=== PATIENT | male | born 1930 | race Caucasian/White ===

== ENCOUNTER 2017-09-24 04:33 | Observation (INO) | payer MEDICARE ==
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
[2017-09-24 04:59] LABS: Prothrombin Time (Patient) 10.2 Seconds (9.0-11.0)
[2017-09-24 05:01] LABS: Albumin * 3.9 gm/dl (3.4-5.0); Anion Gap 12.5 mmol/L (6.8-13.8); BUN/Creatinine Ratio 19.7 (9.0-21.6); Ca. Corrected For Albumin 9.1 mg/dL (8.4-10.2); Calcium * 9.3 mg/dL (7.9-10.9); Carbon Dioxide 29.3 mmol/L (24-32.6); INR 1.02 INR (0.90-1.10); Partial Thrombolplastin Time 23.2 Seconds (24-32); Potassium 3.8 mmol/L (3.4-4.6); Total Protein 7.9 gm/dL (6.2-8.2)
[2017-09-24 05:49] LABS: Hematocrit 40.4 % (42.0-52.0); Hemoglobin 13.8 gm/dL (13.5-18.0); Mean Cell Volume 93.1 fl (78-100); Mean Corpuscular Hemoglobin 31.8 pg (27-31); Mean Corpuscular Hgb Conc 34.2 g/dl (32-36); Neutrophil # 9.8 K/mm3 (1.3-6.0); Neutrophil % 87.9 % (42-75.0); Platelet Count 171 K/mm3 (150-450); Red Blood Count 4.34 M/mm3 (4.7-6.0); Red Cell Distribution Width 13.2 % (11.5-14.0); White Blood Count 11.1 K/mm3 (4.0-10.5)
[2017-09-24 05:52] LABS: Urine Bilirubin Negative (NEGATIVE); Urine Blood 25 /ul (NEGATIVE); Urine Ketone 5 mg/dL (NEGATIVE); Urine Nitrite Negative (NEGATIVE); Urine Protein Negative (NEGATIVE); Urine Specific Gravity 1.015 SP.GR. (1.005-1.030); Urine Urobilinogen Normal (NORMAL)
[2017-09-24] MEDS ORDERED: ONDANSETRON HCL/PF 2 MG/ML VIAL IV ONE (05:53)
[2017-09-24] MEDS ORDERED: MORPHINE SULFATE 2 MG/ML DISP.SYRIN IV ONE ×2 (05:53→06:28)
[2017-09-24] MEDS ORDERED: MORPHINE SULFATE 2 MG/ML DISP.SYRIN ONE ×2 (05:54→06:45)
[2017-09-24] MEDS ORDERED: ONDANSETRON HCL/PF 2 MG/ML VIAL ONE (05:54)
[2017-09-24 06:01] LABS: Urine Color Yellow
[2017-09-24 06:02] LABS: Urine Appearance Cloudy; Urine Bacteria 4+; Urine RBC 0-5 /hpf (0-5)
[2017-09-24] MEDS ORDERED: LISINOPRIL 20 MG TABLET PO SCH (07:15)
[2017-09-24] MEDS ORDERED: LISINOPRIL 10 MG TABLET ONE (07:18)
--- NOTE | 2017-09-24 08:53 | HP ---
Chief Complaint - Chief Complaint Date of Service: 09/24/17 Time of Service: 08:45 Chief Complaint: syncope History of Present Illness: 87-year-old white male in the middle of the night get out of bed walk to the bathroom got dizzy and fell down. He thinks he passed out He remember he had pain on the left side of the ribs and a crawl back to his bed and called 911. He said he walked to the ambulance and was seen in the emergency room head CT showed old stroke and x-ray showed fractured left ribs. At the emergency room his blood pressure was 220/110 which gradually settle down when he was admitted to the floor - Patient's Past Medical History Patient History - Medical: No pertinent hx, Renal Failure Patient History - Cardiac/Respiratory: Hypertension Patient History - Cancer: No Hx of Cancer Patient History - Surgical Procedures: No surgical history Patient History - Other: None - Family History Family History:: no family history of premature - Family History Mother Family History - Medical: , No pertinent hx Family History - Cardiac/Respiratory: No pertinent hx Family History - Cancer: No pertinent family hx - Social History Living Situations: alone Abuse History: No History of abuse Psych History: No pertinent hx Smoking Status: Never smoker Have you smoked in the past 12 months: No Drug Use: none Review Of Systems (GEN) - Review of Systems EENTM: Present: No Symptoms Reported Respiratory: Present: No Symptoms Reported Cardiac: Present: No Symptoms Reported Abdominal: Present: No Symptoms Reported Genitourinary: Present: Frequency, Nocturia, Polyuria Musculoskeletal: Present: No Symptoms Reported Neurological: Present: No Symptoms Reported Allergies/Adverse Reactions: Allergies Allergy/AdvReac Type Severity Reaction Status Date / Time No Known Allergies Allergy Verified 09/24/17 05:36 Home Medications: HOME MEDICATIONS Fexofenadine/Pseudoephedrine [Lorena-D 12 Hour Tablet] 1 each PO DAILY [Last Taken Unknown] Furosemide [Lasix] 40 mg PO DAILY 09/24/17 [Last Taken Unknown] Lisinopril 20 mg PO DAILY 09/24/17 [Last Taken Unknown] Tamsulosin HCl [Flomax] 2 tab PO DAILY 09/24/17 [Last Taken Unknown] Exam - Exam Vital Signs: Vital Signs - Last Taken Temp 36.9 C 09/24/17 08:08 Pulse 84 09/24/17 08:08 Resp 20 09/24/17 08:08 BP 145/70 09/24/17 08:08 Pulse Ox 97 09/24/17 08:08 Constitutional: Present: Alert, Oriented x3, Cooperative ENT Exam: Present: normal ENT inspection, hearing grossly normal Neck: Present: full range of motion Back Exam: Present: normal inspection Respiratory: Present: lungs clear Cardiovascular/Chest: Present: regular rate, rhythm, no JVD, edema Abdomen: Present: Normal bowel sounds, soft, nontender, nondistended Extremity: Present: normal range of motion, normal inspection, lower extremity edema Skin Exam: Present: normal color, warm/dry Neurologic: Present: air conditioning mechanic industrial II-XII nml as tested, normal cerebellar test Appearance: Present: appropriate appearance Diagnostic Studies: Laboratory Results WBC 11.1 K/mm3 (4.0-10.5) H 09/24/17 05:45 RBC 4.34 M/mm3 (4.7-6.0) L 09/24/17 05:45 Hgb 13.8 gm/dL (13.5-18.0) 09/24/17 05:45 Hct 40.4 % (42.0-52.0) L 09/24/17 05:45 MCV 93.1 fl (78-100) 09/24/17 05:45 MCH 31.8 pg (27-31) H 09/24/17 05:45 MCHC 34.2 g/dl (32-36) 09/24/17 05:45 RDW 13.2 % (11.5-14.0) 09/24/17 05:45 Plt Count 171 K/mm3 (150-450) 09/24/17 05:45 MPV 10.0 fl (6.0-9.5) H 09/24/17 05:45 Immature Gran % (Auto) 0.50 % (0.001-0.429) H 09/24/17 05:45 Immature Gran # (Auto) 0.05 K/mm3 (0.000-0.0310) H 09/24/17 05:45 Neutrophils % 87.9 % (42-75.0) H 09/24/17 05:45 Lymphocytes % 6.6 % (20-51) L 09/24/17 05:45 Monocytes % 4.5 % (0.0-9) 09/24/17 05:45 Eosinophils % 0.2 % (0.0-3.0) 09/24/17 05:45 Basophils % 0.3 % (0.0-1.0) 09/24/17 05:45 Nucleated RBC % 0.0 k/mm3 (0-1) 09/24/17 05:45 Neutrophils # 9.8 K/mm3 (1.3-6.0) H 09/24/17 05:45 Lymphocytes # 0.7 k/mm3 (1.5-3.5) L 09/24/17 05:45 Monocytes # 0.5 k/mm3 (0.0-1.0) 09/24/17 05:45 Eosinophils # 0.0 k/mm3 (0.0-0.7) 09/24/17 05:45 Absolute Basophils 0.0 k/mm3 (0.0-0.1) 09/24/17 05:45 ESR 13 mm/hr (0-10) H 09/24/17 05:45 PT 10.2 Seconds (9.0-11.0) 09/24/17 04:38 INR (Anticoag Therapy) 1.02 INR (0.90-1.10) 09/24/17 04:38 PTT ([place]) 23.2 Seconds (24-32) L 09/24/17 04:38 Sodium 144 mmol/L (132-142) H 09/24/17 04:38 Plasma Sodium 145 mmol/L (130-142) H 09/24/17 04:38 Potassium 3.8 mmol/L (3.4-4.6) 09/24/17 04:38 Chloride 106 mmol/L (97-106) 09/24/17 04:38 Carbon Dioxide 29.3 mmol/L (24-32.6) 09/24/17 04:38 Anion Gap 12.5 mmol/L (6.8-13.8) 09/24/17 04:38 BUN 35 mg/dL (6-23) H 09/24/17 04:38 Creatinine 1.78 mg/dL (0.4-1.4) H 09/24/17 04:38 Est GFR (Non-Af Amer) 39 mL/min (60-130) L 09/24/17 04:38 BUN/Creatinine Ratio 19.7 (9.0-21.6) 09/24/17 04:38 Random Glucose 142 mg/dL (70-110) H 09/24/17 04:38 Calcium 9.3 mg/dL (7.9-10.9) 09/24/17 04:38 Calcium Adj for Albumin 9.1 mg/dL (8.4-10.2) 09/24/17 04:38 Total Bilirubin 1.0 mg/dL (0.0-1.1) 09/24/17 04:38 AST 21 U/L (0-48) 09/24/17 04:38 ALT 19 U/L (19-67) 09/24/17 04:38 Alkaline Phosphatase 85 U/L (50-170) 09/24/17 04:38 Total Protein 7.9 gm/dL (6.2-8.2) 09/24/17 04:38 Albumin 3.9 gm/dl (3.4-5.0) 09/24/17 04:38 Urine Color Yellow 09/24/17 05:45 Urine Appearance Cloudy 09/24/17 05:45 Urine pH 6.0 pH (5.0-7.0) 09/24/17 05:45 Ur Specific [place] 1.015 SP.GR. (1.005-1.030) 09/24/17 05:45 Urine Protein Negative mg/dL (NEGATIVE) 09/24/17 05:45 Urine Glucose (UA) Negative mg/dL (NEGATIVE) 09/24/17 05:45 Urine Ketones 5 mg/dL (NEGATIVE) 09/24/17 05:45 Urine Blood 25 /ul (NEGATIVE) H 09/24/17 05:45 Urine Nitrate Negative (NEGATIVE) 09/24/17 05:45 Urine Bilirubin Negative mg/dl (NEGATIVE) 09/24/17 05:45 Urine Urobilinogen Normal EU/dl (NORMAL) 09/24/17 05:45 Ur Leukocyte Esterase 25 /ul (NEGATIVE) H 09/24/17 05:45 Urine RBC 0-5 /hpf (0-5) 09/24/17 05:45 Urine WBC 10-25 /hpf (0-5) H 09/24/17 05:45 Ur Epithelial Cells None seen /hpf (0-5) 09/24/17 05:45 Urine Bacteria 4+ (NONE) H 09/24/17 05:45 Urine Culture Comments Culture to follow 09/24/17 05:45 Assessment/Plan - Narrative Narrative: Postural syncope Hypertensive urgency Will be admitted for observation ,pain control and adjustment of medication
[2017-09-24] MEDS: HYDROcodone/ACETAMINOPHEN 1 EACH TABLET PO PRN ×3 (12:38→21:14)
[2017-09-24] MEDS: TAMSULOSIN HCL 0.4 MG CAP.SR.24H PO SCH ×2 (18:12→18:15)
[2017-09-25] MEDS: HYDROcodone/ACETAMINOPHEN 1 EACH TABLET PO PRN ×2 (03:29→08:00)
[2017-09-25 07:20] VITALS: BP 178/70
--- NOTE | 2017-09-25 08:57 | DS ---
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 Problem: Acute (3) Sick sinus syndrome Problem: Acute (4) Hypertension Problem: Acute Qualifiers: Hypertension type: essential hypertension Qualified Code(s): I10 - Essential (primary) hypertension (5) Head contusion Problem: Acute Qualifiers: Encounter type: initial encounter Contusion of head detail: scalp Qualified Code(s): S00.03XA - Contusion of scalp, initial encounter (6) Fractured rib Problem: Acute Qualifiers: Laterality: left Description of Stay: 87-year-old white male with long history of hypertension middle of the night got out of bed got dizzy and passed out resulting in fractured left ribs and subcutaneous hematoma over the left forehead he was evaluated and admitted to observation telemetry during observation had an episodes of severe bradycardia during the night. Patient insisted on going home explained to him that he will pass out again but insisted and discharged himself AGAINST MEDICAL ADVICE. I made arrangement for him to be seen by sheet metal helper Dr. Landin at the [facility] this Saturday for possible pacemaker placement Procedures Performed: none Discharge Disposition: Home self care Disposition: Home self-care Condition: Undetermined Discharge Activity: Activity as tolerated, Other - he was told not to drive Discharge Diet: General/regular food, Low salt Referrals: Lei Jenkins MD [Primary Care Provider] - Additional Patient Instructions (free text): Please make TCM appointment at discharge, if applicable. Thank you! Jovita @ ext: [phone]. Prescriptions (Any new or edited meds): HYDROcodone/ACETAMINOPHEN [[place] 5-325] 1 each PO Q4H PRN #20 tablet PRN Reason: Pain Complete Home Medications List: Complete Home Medication List: Furosemide [Lasix] 40 mg PO DAILY 09/24/17 Lisinopril 20 mg PO DAILY 09/24/17 HYDROcodone/ACETAMINOPHEN [[place] 5-325] 1 each PO Q4H PRN #20 tablet 09/25/17
[2017-09-25] MEDS ORDERED: LISINOPRIL 20 MG TABLET PO SCH (09:00)
== END 2017-09-25 10:30 | disposition left against medical advice (07) ==
LOC: ER 04:33 → MS 06:37
PROVIDERS: ADMIT Nurse Practitioner; ATTEND Internal Medicine
DX: I49.5 Sick sinus syndrome (principal); R00.1 Bradycardia, unspecified; S00.83XA Contusion of other part of head, initial encounter; S20.212A Contusion of left front wall of thorax, initial encounter; W18.39XA Other fall on same level, initial encounter; Z91.81 History of falling; Y92.019 Unspecified place in single-family (private) house as the place of occurrence of the external cause; S22.42XA Multiple fractures of ribs, left side, initial encounter for closed fracture; I16.0 Hypertensive urgency; R40.2413 Glasgow coma scale score 13-15, at hospital admission
CPT/HCPCS: 36415; 70450; 71020; 71100; 80053; 81001; 85025; 85610; 85652; 85730; 87086; 93005; 96374; 96375; 96376; 99284; G0378; J2405

== ENCOUNTER 2018-06-29 09:21 | Observation (INO) ==
--- NOTE | 2018-06-29 10:27 | ERNOTE ---
Syncope ER HPI Stated Complaint: right leg issues, dizzy Time Seen by Provider: 06/29/18 10:01 Source: patient Exam Limitations: no limitations Immunizations: IMMUNIZATION HX Immunizations Up to Date No History of Influenza Vaccine Yes Hx Pneumococcal Vaccination No Allergies/Adverse Reactions: Allergies No Known Allergies Allergy (Verified 06/10/18 10:33) Home Medications: HOME MEDICATIONS amlodipine 5 mg tablet 5 mg PO DAILY 06/05/18 [Last Taken Unknown] finasteride 5 mg tablet 5 mg PO DAILY 06/05/18 [Last Taken Unknown] furosemide 40 mg tablet 80 mg PO DAILY tab 06/05/18 [Last Taken Unknown] tamsulosin 0.4 mg capsule 0.4 mg PO .COMPLEX cap 06/05/18 [Last Taken Unknown] lisinopril 20 mg tablet 20 mg PO DAILY 06/09/18 [Last Taken Unknown] - History of Present Illness Narrative: Patient is here for recurrent near syncopal episodes. Last night and this morning he had a total of four episodes when he got light headed and went down on his knees. He denies any loss of consciousness, did not hit his head, was able to get up (though with some difficulty) by himself, denies any pain currently. He states that his right leg has been more swollen for years, he has been dealing with dizzyness and has recently started physical therapy for that. He is very concerned that I understand that he is not making this up or just wants attention Date (Duration): 06/28/18 Prior Episodes: Present: multiple episodes today Symptoms prior to episode: Present: light headedness Activity at time of episode: Present: sitting Character of event: Present: no loss of consciousness Location of Injury: Present: none Current Symptoms: Present: back to normal Prior Treament: Reports: similar symptoms before. Denies: recently seen Review of Systems - Review of Systems Constitutional: Absent: recent illness, fever EYE: Absent: vision changes ENT: Present: nose congestion. Absent: sore throat Respiratory: Absent: shortness of breath, cough Cardiology: Absent: chest pain Gastrointestinal/Abdominal: Absent: nausea, vomiting, abdominal pain Genitourinary: Present: no symptoms reported Musculoskeletal: Absent: back pain Skin: Absent: rash Neurological: Present: See HPI, dizziness/light-headedness. Absent: headache, weakness, numbness Medical History (Last Updated 06/29/18 @ 10:26 by Prisicla Palma MD) Hypertension Sick sinus syndrome BPH (benign prostatic hyperplasia) Onset Date: Unknown Frequent falls Onychomycosis Onset Date: Unknown Osteoarthritis Onset Date: Unknown Peripheral arterial disease Onset Date: Unknown Surgical History: Surgical History (Last Reviewed 06/10/18 @ 10:48 by Lauren Cain) Tibia fracture Onset Date: ~2001 Family History: Family History (Last Reviewed 06/10/18 @ 10:48 by Lauren Cain) Father Myocardial infarction Social History: Preferred Language Chinese Abuse History No History of abuse Psych History No pertinent hx Physical Exam - Physical Exam General Appearance: Present: wd/wn, alert, no apparent distress, other - very unkept, pyjamas dirty, dried stool on leg Eye Exam: Normal inspection: bilateral, PERRL: bilateral Ears, Nose, Throat: Present: normal pharynx Respiratory: Present: no respiratory distress, normal breath sounds, no accessory muscle use, lungs clear Cardiovascular/Chest: Present: regular rate, rhythm, no murmur Gastrointestinal/Abdominal: Present: nontender Back Exam: Present: no vertebral tenderness Extremity Exam: Present: pedal edema - bilateral edema, right significantly more than left Neurological Exam: Present: alert, oriented, normal mood/affect, no motor/ sensory deficits, other - able to puch himself up in wheelchair without help, transfers with small shuffeling gait to bed Skin Exam: Present: normal color, warm/dry ED Progress - Results and Orders Patient's Lab Results:: I have reviewed the patient's lab results. - Vital Signs Patient's Vital Signs:: I have reviewed the patient's vital signs. Vital Signs: Vital Signs 06/29/18 09:22 Temperature 36.6 C Pulse Rate 68 Respiratory Rate 16 Blood Pressure 109/65 O2 Sat by Pulse Oximetry 97 - EKG EKG: NSR, other - 1st degree AV block EKG read: Interp. by me - Progress/Reassessment Chief Complaint: Fall Progress Note-Subjective: 06/29/18 10:29 according to chart patient was admitted in 09/2017 diagnosed with sick sinus and offered transfer for pacemaker placement, patient refused 06/29/18 11:40 discussed test results with patient, significant orthostatic hypotension. With history of sick sinus quick hydration in the ER is not appropriate, needs also telemetry. He states that he followed up with a brush polisher and was told that he didn't need a pacemaker, will treat UTI ultrasound for right leg swelling and positive d-dimer ordered 06/29/18 11:47 discussed with cristóbal Moss to admit for presyncope, with orthostatic hypotension and history of sick sinus will order fluids once on the floor Departure Clinical Impression: Sick sinus syndrome, Orthostatic syncope UTI (urinary tract infection) Qualifiers: Urinary tract infection type: acute cystitis Hematuria presence: without hematuria Qualified Code(s): N30.00 - Acute cystitis without hematuria Syncopal episodes Qualifiers: Syncope type: unspecified Qualified Code(s): R55 - Syncope and collapse - Departure Disposition: Still a patient Condition: Good
[2018-06-29 10:42] LABS: Hemoglobin 12.7 gm/dL (13.5-18.0); Mean Cell Volume 92.3 fl (78-100); Mean Corpuscular Hemoglobin 31.7 pg (27-31); Mean Corpuscular Hgb Conc 34.3 g/dl (32-36); Mean Platelet Volume 10.3 fl (8-11.3); Neutrophil # 8.2 K/mm3 (1.3-6.0); Neutrophil % 87.4 % (42-75.0); Platelet Count 170 K/mm3 (150-450); Red Blood Count 4.01 M/mm3 (4.7-6.0); Red Cell Distribution Width 13.7 % (11.5-14.0); White Blood Count 9.4 K/mm3 (4.0-10.5)
[2018-06-29 11:02] LABS: ALT 13 U/L (19-67); AST 16 U/L (0-48); Alkaline Phosphatase * 85 U/L (50-170); Anion Gap 12.9 mmol/L (6.8-13.8); BUN/Creatinine Ratio 15.5 (9.0-21.6); Bilirubin, Total 1.3 mg/dL (0.0-1.1); Blood Urea Nitrogen 34 mg/dL (6-23); Ca. Corrected For Albumin 8.9 mg/dL (8.4-10.2); Calcium * 9.2 mg/dL (7.9-10.9); Carbon Dioxide 28.9 mmol/L (24-32.6); Chloride 103 mmol/L (97-106); Glucose * 114 mg/dL (70-110); Potassium 3.8 mmol/L (3.4-4.6); Sodium 141 mmol/L (132-142); TSH * 2.572 uIU/mL (0.358-3.74); Total Protein 7.5 gm/dL (6.2-8.2)
[2018-06-29 11:03] LABS: Troponin I Less than 0.017 ng/mL (0.00-0.10)
[2018-06-29 11:05] LABS: Urine Appearance Cloudy (CLEAR); Urine Bilirubin Negative (NEGATIVE); Urine Blood Negative /ul (NEGATIVE); Urine Color Yellow; Urine Ketone Negative (NEGATIVE); Urine Nitrite Negative (NEGATIVE); Urine Protein Negative (NEGATIVE); Urine Specific Gravity 1.015 SP.GR. (1.005-1.030); Urine Urobilinogen Normal (NORMAL)
[2018-06-29 11:06] LABS: Urine Bacteria 4+; Urine RBC None Seen /hpf (0-5); Urine WBC >50 /hpf (0-5)
[2018-06-29] MEDS: NITROFURANTOIN/NITROFURAN MAC 100 MG CAPSULE PO SCH ×2 (14:08→20:28)
[2018-06-29] MEDS: NEOMYCIN/BACITRACIN/POLYMYXINB 15 APPL TUBE TP SCH (15:42)
--- NOTE | 2018-06-29 16:23 | HP ---
Chief Complaint - Chief Complaint Date of Service: 06/29/18 Time of Service: 14:00 Chief Complaint: orthostatic near syncope with several falls History of Present Illness: Darrick reports that his legs again very swollen and Dr. Jenkins placed him on a diuretic. He also takes a blood pressure medicine. He drinks quite a lot of caffeinated beverages and he doesn't think he's been drinking as much water as he usually does lately. He has become weak and lightheaded when he stands up and better when he sits down or lies down. He's had 2 episodes where he has fallen and had to pull himself to his bed in order to be able to get up. He's had no apparent injuries except for an abrasion of the toe. He is also complaining of hoarseness for the past 10-14 days. He was placed on an antihistamine but doesn't have any rhinorrhea, sneezing, itchy watery eyes etc. I'm assuming the thought was that postnasal drainage could be causing his hoarseness and drying that drainage up may help. It has not to this point. His lower legs are crenated, his skin turgor is diminished, his mucous membranes are dry. Clinically he appears dehydrated. He has severe orthostatic hypotension with blood pressure of systolic 150 supine and then 80 systolic standing. He is able to drink well. He does have an IV established and a saline lock. I'm going to let him a 10 to rehydrate with oral fluids. If the orthostatic hypotension persists and I will give him more fluids and IV tomorrow. Medical History (Last Updated 06/29/18 @ 10:26 by Priscila Palma MD) Hypertension Sick sinus syndrome BPH (benign prostatic hyperplasia) Onset Date: Unknown Frequent falls Onychomycosis Onset Date: Unknown Osteoarthritis Onset Date: Unknown Peripheral arterial disease Onset Date: Unknown Surgical History: Surgical History (Last Reviewed 06/10/18 @ 10:48 by Lauren Cain) Tibia fracture Onset Date: ~2001 Family History: Family History (Last Reviewed 06/10/18 @ 10:48 by Lauren Cain) Father Myocardial infarction Social History: Patient Lives/Resources Home Utilized Occupation retired Preferred Language Welsh Do you have any shinto or No cultural preference? Smoking Status Never smoker Have you smoked in the past 12 No months Do you dip or chew tobacco No Abuse History No History of abuse Psych History No pertinent hx Review Of Systems (GEN) - Review of Systems Generalized/Overall Review: Present: Weakness, Malaise, Fatigue, Weight loss - He reports a 13 pound weight loss since starting the diuretic. EENTM: Present: No Symptoms Reported, Other - Complaining of chronic hoarseness Respiratory: Present: No Symptoms Reported Cardiac: Present: No Symptoms Reported Abdominal: Present: No Symptoms Reported Genitourinary: Present: No Symptoms Reported, Other - He has a history of prostatism and takes tamsulosin and finasteride which has helped. Musculoskeletal: Present: No Symptoms Reported Neurological: Present: No Symptoms Reported, Weakness Skin: Present: No Symptoms Reported, Dryness Endocrine: Present: No Symptoms Reported Misc: All systems neg except as marked Immunizations: IMMUNIZATION HX Immunizations Up to Date No History of Influenza Vaccine Yes Hx Pneumococcal Vaccination No Allergies/Adverse Reactions: Allergies Allergy/AdvReac Type Severity Reaction Status Date / Time No Known Allergies Allergy Verified 06/10/18 10:33 Home Medications: HOME MEDICATIONS amlodipine 5 mg tablet 5 mg PO DAILY 06/05/18 [Last Taken 06/29/18] finasteride 5 mg tablet 5 mg PO DAILY 06/05/18 [Last Taken Unknown] furosemide 40 mg tablet 80 mg PO DAILY tab 06/05/18 [Last Taken Unknown] tamsulosin 0.4 mg capsule 0.4 mg PO .COMPLEX cap 06/05/18 [Last Taken Unknown] lisinopril 20 mg tablet 20 mg PO DAILY 06/09/18 [Last Taken 06/29/18] Exam - Exam Vital Signs: Vital Signs - Last Taken Temp 36.6 C 06/29/18 12:50 Pulse 67 06/29/18 13:21 Resp 16 06/29/18 12:50 BP 135/59 06/29/18 12:50 Pulse Ox 100 06/29/18 12:50 Constitutional: Present: Alert, Oriented x3, Cooperative, Well developed, Well nourished, No distress ENT Exam: Present: normal ENT inspection, hearing grossly normal, pharynx normal , TMs normal Eye Exam: bilateral eye: normal inspection, PERRL, EOMI Neck: Present: non-tender, full range of motion, supple, normal inspection, trachea midline Back Exam: Present: normal inspection, no CVA tenderness, no vertebral tenderness Breasts: Present: Exam deferred Respiratory: Present: chest non-tender, lungs clear, normal breath sounds, no respiratory distress Cardiovascular/Chest: Present: normal peripheral pulses, regular rate, rhythm, no chest tenderness, no edema, no gallop, no JVD, no murmur, no rub Peripheral Pulses: carotid (R): 2+, carotid (L): 2+, radial (R): 2+, radial (L) : 2+ Abdomen: Present: Normal bowel sounds, soft, nontender, nondistended, no rebound tenderness, no hepatospenomegaly, no masses /Rectal: Present: Exam deferred Extremity: Present: normal range of motion, pedal edema, swelling - Mentally completely gone. Some mild edema in the right leg continues. Skin Exam: Present: normal color, warm/dry, no cyanosis Lymphatic: Present: no adenopathy Neurologic: Present: dry kiln loader II-XII nml as tested, no motor/sensory deficits, alert , normal mood/affect, oriented x 3 Appearance: Present: appropriate appearance, appropriate insight, neat Eye contact: Present: cooperative, good eye contact, normal speech Thoughts: Present: normal thought pattern, no apparent hallucination Diagnostic Studies: Abnormal Lab Results 06/29/18 06/29/18 06/29/18 Range/Units 10:35 10:35 10:35 RBC 4.01 L (4.7-6.0) M/mm3 Hgb 12.7 L (13.5-18.0) gm/dL Hct 37.0 L (42.0-52.0) % MCH 31.7 H (27-31) pg Immature Gran # (Auto) 0.04 H (0.000-0.0310) K/mm3 Neutrophils % 87.4 H (42-75.0) % Lymphocytes % 5.8 L (20-51) % Neutrophils # 8.2 H (1.3-6.0) K/mm3 Lymphocytes # 0.54 L (1.5-3.5) k/mm3 D-Dimer 0.91 H (0.19-0.49) ug/mL BUN 34 H (6-23) mg/dL Creatinine 2.20 H (0.4-1.4) mg/dL Est GFR (Non-Af Amer) 30 L (60-130) mL/min Random Glucose 114 H (70-110) mg/dL Total Bilirubin 1.3 H (0.0-1.1) mg/dL ALT 13 L (19-67) U/L Ur Leukocyte Esterase (NEGATIVE) /ul Urine WBC (0-5) /hpf Urine Bacteria (NONE) 06/29/18 Range/Units 10:55 RBC (4.7-6.0) M/mm3 Hgb (13.5-18.0) gm/dL Hct (42.0-52.0) % MCH (27-31) pg Immature Gran # (Auto) (0.000-0.0310) K/mm3 Neutrophils % (42-75.0) % Lymphocytes % (20-51) % Neutrophils # (1.3-6.0) K/mm3 Lymphocytes # (1.5-3.5) k/mm3 D-Dimer (0.19-0.49) ug/mL BUN (6-23) mg/dL Creatinine (0.4-1.4) mg/dL Est GFR (Non-Af Amer) (60-130) mL/min Random Glucose (70-110) mg/dL Total Bilirubin (0.0-1.1) mg/dL ALT (19-67) U/L Ur Leukocyte Esterase 500 H (NEGATIVE) /ul Urine WBC >50 H (0-5) /hpf Urine Bacteria 4+ H (NONE) Laboratory Results WBC 9.4 K/mm3 (4.0-10.5) 06/29/18 10:35 RBC 4.01 M/mm3 (4.7-6.0) L 06/29/18 10:35 Hgb 12.7 gm/dL (13.5-18.0) L 06/29/18 10:35 Hct 37.0 % (42.0-52.0) L 06/29/18 10:35 MCV 92.3 fl (78-100) 06/29/18 10:35 MCH 31.7 pg (27-31) H 06/29/18 10:35 MCHC 34.3 g/dl (32-36) 06/29/18 10:35 RDW 13.7 % (11.5-14.0) 06/29/18 10:35 Plt Count 170 K/mm3 (150-450) 06/29/18 10:35 MPV 10.3 fl (8-11.3) 06/29/18 10:35 Immature Gran % (Auto) 0.40 % (0.001-0.429) 06/29/18 10:35 Immature Gran # (Auto) 0.04 K/mm3 (0.000-0.0310) H 06/29/18 10:35 Neutrophils % 87.4 % (42-75.0) H 06/29/18 10:35 Lymphocytes % 5.8 % (20-51) L 06/29/18 10:35 Monocytes % 6.1 % (0.0-9) 06/29/18 10:35 Eosinophils % 0.1 % (0.0-3.0) 06/29/18 10:35 Basophils % 0.2 % (0.0-1.0) 06/29/18 10:35 Nucleated RBC % 0.0 k/mm3 (0-1) 06/29/18 10:35 Neutrophils # 8.2 K/mm3 (1.3-6.0) H 06/29/18 10:35 Lymphocytes # 0.54 k/mm3 (1.5-3.5) L 06/29/18 10:35 Monocytes # 0.6 k/mm3 (0.0-1.0) 06/29/18 10:35 Eosinophils # 0.0 k/mm3 (0.0-0.7) 06/29/18 10:35 Absolute Basophils 0.0 k/mm3 (0.0-0.1) 06/29/18 10:35 D-Dimer 0.91 ug/mL (0.19-0.49) H 06/29/18 10:35 Sodium 141 mmol/L (132-142) 06/29/18 10:35 Plasma Sodium 141 mmol/L (130-142) 06/29/18 10:35 Potassium 3.8 mmol/L (3.4-4.6) 06/29/18 10:35 Chloride 103 mmol/L (97-106) 06/29/18 10:35 Carbon Dioxide 28.9 mmol/L (24-32.6) 06/29/18 10:35 Anion Gap 12.9 mmol/L (6.8-13.8) 06/29/18 10:35 BUN 34 mg/dL (6-23) H 06/29/18 10:35 Creatinine 2.20 mg/dL (0.4-1.4) H 06/29/18 10:35 Est GFR (Non-Af Amer) 30 mL/min (60-130) L 06/29/18 10:35 BUN/Creatinine Ratio 15.5 (9.0-21.6) 06/29/18 10:35 Random Glucose 114 mg/dL (70-110) H 06/29/18 10:35 Lactic Acid, Venous 1.5 mmol/L (0.4-2.0) 06/29/18 10:30 Calcium 9.2 mg/dL (7.9-10.9) 06/29/18 10:35 Calcium Adj for Albumin 8.9 mg/dL (8.4-10.2) 06/29/18 10:35 Total Bilirubin 1.3 mg/dL (0.0-1.1) H 06/29/18 10:35 AST 16 U/L (0-48) 06/29/18 10:35 ALT 13 U/L (19-67) L 06/29/18 10:35 Alkaline Phosphatase 85 U/L (50-170) 06/29/18 10:35 Troponin I Less than 0.017 ng/mL (0.00-0.10) 06/29/18 10:35 Total Protein 7.5 gm/dL (6.2-8.2) 06/29/18 10:35 Albumin 4.0 gm/dl (3.4-5.0) 06/29/18 10:35 TSH 2.572 uIU/mL (0.358-3.74) 06/29/18 10:35 Urine Color Yellow 06/29/18 10:55 Urine Appearance Cloudy (CLEAR) 06/29/18 10:55 Urine pH 6.0 pH (5.0-7.0) 06/29/18 10:55 Ur Specific [place] 1.015 SP.GR. (1.005-1.030) 06/29/18 10:55 Urine Protein Negative mg/dL (NEGATIVE) 06/29/18 10:55 Urine Glucose (UA) Negative mg/dL (NEGATIVE) 06/29/18 10:55 Urine Ketones Negative mg/dL (NEGATIVE) 06/29/18 10:55 Urine Blood Negative /ul (NEGATIVE) 06/29/18 10:55 Urine Nitrate Negative (NEGATIVE) 06/29/18 10:55 Urine Bilirubin Negative mg/dl (NEGATIVE) 06/29/18 10:55 Urine Urobilinogen Normal EU/dl (NORMAL) 06/29/18 10:55 Ur Leukocyte Esterase 500 /ul (NEGATIVE) H 06/29/18 10:55 Urine RBC None seen /hpf (0-5) 06/29/18 10:55 Urine WBC >50 /hpf (0-5) H 06/29/18 10:55 Ur Epithelial Cells None seen /hpf (0-5) 06/29/18 10:55 Urine Bacteria 4+ (NONE) H 06/29/18 10:55 Urine Culture Comments Culture to follow 06/29/18 10:55 Assessment/Plan - Narrative Narrative: 1. Encourage oral fluids to rehydrate 2. Check her blood pressures each shift 3. Continuous cardiac monitoring 4. Repeat labs for tomorrow morning 5. Recheck lab in the morning - Assessment/Plan (1) Orthostatic hypotension Problem: Acute (2) Dehydration Problem: Acute (3) Abrasion of great toe of right foot Problem: Acute Qualifiers: Encounter type: initial encounter Qualified Code(s): S90.411A - Abrasion, right great toe, initial encounter (4) Lymphedema of right lower extremity Problem: Chronic (5) Hoarseness of voice Problem: Acute (6) Verruca vulgaris Problem: Chronic Qualifiers: Viral wart type: other viral wart Qualified Code(s): B07.8 - Other viral warts
[2018-06-29] MEDS ORDERED: TAMSULOSIN HCL 0.4 MG CAP.SR.24H PO SCH (17:30)
[2018-06-30 05:44] LABS: Hematocrit 34.9 % (42.0-52.0); Hemoglobin 11.9 gm/dL (13.5-18.0); Mean Cell Volume 92.6 fl (78-100); Mean Corpuscular Hemoglobin 31.6 pg (27-31); Mean Corpuscular Hgb Conc 34.1 g/dl (32-36); Mean Platelet Volume 10.5 fl (8-11.3); Neutrophil % 65.3 % (42-75.0); Platelet Count 143 K/mm3 (150-450); Red Blood Count 3.77 M/mm3 (4.7-6.0); Red Cell Distribution Width 13.7 % (11.5-14.0); White Blood Count 6.1 K/mm3 (4.0-10.5)
[2018-06-30 05:52] LABS: Anion Gap 8.5 mmol/L (6.8-13.8); BUN/Creatinine Ratio 17.3 (9.0-21.6); Calcium * 8.7 mg/dL (7.9-10.9); Carbon Dioxide 29.6 mmol/L (24-32.6); Estimated Creat Clear 31.2; Potassium 4.1 mmol/L (3.4-4.6)
[2018-06-30] MEDS ORDERED: FINASTERIDE 5 MG TABLET PO SCH (09:00)
[2018-06-30] MEDS: NEOMYCIN/BACITRACIN/POLYMYXINB 15 APPL TUBE TP SCH (09:09)
[2018-06-30] MEDS: NITROFURANTOIN/NITROFURAN MAC 100 MG CAPSULE PO SCH (09:09)
--- NOTE | 2018-06-30 09:15 | DS ---
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 He had fallen several times and had to call to his bed to get pulled back up or he could stand up again. He had seen Dr. Jenkins a couple weeks ago and was placed on a diuretic. He is lost 13 pounds since then. He tilted positive on a three-way blood pressure with systolic of 150 supine and 80 standing. He is allowed to rehydrate by just drinking fluids and this morning is feeling much better. He's been up and walking feels much more stable and no more lightheadedness. He's had no chest discomfort or unusual shortness of breath. He is wearing knee-high support hose to help support the veins due to his lymphedema there. It appears that his orthostasis was just due to dehydration and it has resolved with rehydration. He also asked me to set up appointments for dermatology and ENT which have been ordered. Procedures Performed: none Results and Findings: Pending Mircobiology Results 06/29/18 11:00 Urine,Clean Catch Urine Culture - Preliminary No Pathogens Isolated Lab Pending Results 06/29/18 10:30: Lactic Acid, Venous 1.5 06/29/18 10:35: WBC 9.4, RBC 4.01 L, Hgb 12.7 L, Hct 37.0 L, MCV 92.3, MCH 31.7 H, MCHC 34.3, RDW 13.7, Plt Count 170, MPV 10.3, Immature Gran % (Auto) 0.40, Immature Gran # (Auto) 0.04 H, Neutrophils % 87.4 H, Lymphocytes % 5.8 L, Monocytes % 6.1, Eosinophils % 0.1, Basophils % 0.2, Nucleated RBC % 0.0, Neutrophils # 8.2 H, Lymphocytes # 0.54 L, Monocytes # 0.6, Eosinophils # 0.0, Absolute Basophils 0.0 06/29/18 10:35: Sodium 141, Plasma Sodium 141, Potassium 3.8, Chloride 103, Carbon Dioxide 28.9, Anion Gap 12.9, BUN 34 H, Creatinine 2.20 H, Est GFR (Non- Af Amer) 30 L, BUN/Creatinine Ratio 15.5, Random Glucose 114 H, Calcium 9.2, Calcium Adj for Albumin 8.9, Total Bilirubin 1.3 H, AST 16, ALT 13 L, Alkaline Phosphatase 85, Troponin I Less than 0.017, Total Protein 7.5, Albumin 4.0, TSH 2.572 06/29/18 10:35: D-Dimer 0.91 H 06/29/18 10:55: Urine Color Yellow, Urine Appearance Cloudy, Urine pH 6.0, Ur Specific [place] 1.015, Urine Protein Negative, Urine Glucose (UA) Negative, Urine Ketones Negative, Urine Blood Negative, Urine Nitrate Negative, Urine Bilirubin Negative, Urine Urobilinogen Normal, Ur Leukocyte Esterase 500 H, Urine RBC None seen, Urine WBC >50 H, Ur Epithelial Cells None seen, Urine Bacteria 4+ H, Urine Culture Comments Culture to follow 06/30/18 05:35: WBC 6.1 D, RBC 3.77 L, Hgb 11.9 L, Hct 34.9 L, MCV 92.6, MCH 31.6 H, MCHC 34.1, RDW 13.7, Plt Count 143 L, MPV 10.5, Immature Gran % (Auto) 0.30, Immature Gran # (Auto) 0.02, Neutrophils % 65.3, Lymphocytes % 23.9, Monocytes % 8.7, Eosinophils % 1.5, Basophils % 0.3, Nucleated RBC % 0.0, Neutrophils # 4.0, Lymphocytes # 1.45 L, Monocytes # 0.5, Eosinophils # 0.1, Absolute Basophils 0.0 06/30/18 05:35: Sodium 137, Plasma Sodium 137, Potassium 4.1, Chloride 103, Carbon Dioxide 29.6, Anion Gap 8.5, BUN 32 H, Creatinine 1.85 H, Est GFR (Non- Af Amer) 37 L D, BUN/Creatinine Ratio 17.3, Random Glucose 98, Calcium 8.7 Discharge Location: Home Disposition: Home self-care Condition: Good Discharge Activity: Activity as tolerated Discharge Diet: General/regular food Referrals: Lei Jenkins MD [Primary Care Provider] - Additional Patient Instructions (free text): 1. He is to weigh stripped each morning and if he's gained 3 pounds over today' s weight then he should take a Lasix tablet. He is to take it daily until he gets back to today's base weight. He then stops the medicine until he is gained 3 pounds again. 2. He is to report any new onset of lightheadedness, chest discomfort, unusual shortness of breath,. 3. He should see his PCP in 2 weeks. He has an appointment to see Dr. Jenkins on July 15. Complete Home Medications List: Complete Home Medication List: amlodipine 5 mg tablet 5 mg PO DAILY 06/05/18 finasteride 5 mg tablet 5 mg PO DAILY 06/05/18 furosemide 40 mg tablet 80 mg PO DAILY tab 06/05/18 tamsulosin 0.4 mg capsule 0.4 mg PO .COMPLEX cap 06/05/18 lisinopril 20 mg tablet 20 mg PO DAILY 06/09/18 Amb Orders for Discharge: Consult Physician Location: None Selected Consult Physician Location: None Selected
[2018-06-30 13:13] VITALS: BP 150/50
== END 2018-06-30 12:45 | disposition home or self-care (01) ==
LOC: MS 09:21 → ER 09:21 → MS 12:40
PROVIDERS: ADMIT Family Medicine; ATTEND Family Medicine
DX: I95.1 Orthostatic hypotension; R49.0 Dysphonia; Z91.81 History of falling; R60.0 Localized edema; N30.00 Acute cystitis without hematuria; E86.0 Dehydration; I10 Essential (primary) hypertension; I89.0 Lymphedema, not elsewhere classified; I73.9 Peripheral vascular disease, unspecified; S90.411A Abrasion, right great toe, initial encounter; R55 Syncope and collapse; B07.9 Viral wart, unspecified; I49.5 Sick sinus syndrome; Z68.21 Body mass index [BMI] 21.0-21.9, adult
CPT/HCPCS: 36415; 71020; 71046; 80048; 80053; 81001; 83605; 84443; 84484; 85025; 85379; 87086; 93005; 93971; 99285; G0378